=== PATIENT | male | born 1995 | race Caucasian/White ===

== ENCOUNTER 2023-01-09 09:02 | Inpatient (IN) | payer OTHER ==
[2023-01-09 09:24] VITALS: BMI 31.6
[2023-01-09] MEDS ORDERED: guaiFENesin 600 MG TABLET.ER (FP) PO PRN (10:59)
[2023-01-09] MEDS ORDERED: BENZOCAINE/MENTHOL (CHLORASEPTIC ) LOZENGE MM PRN (10:59)
[2023-01-09] MEDS ORDERED: BENZONATATE 200 MG CAPSULE PO PRN (10:59)
[2023-01-09] MEDS ORDERED: MAGNESIUM HYDROX 2400MG/30ML ORAL SUSPENSION 30 ML CUP PO PRN (10:59)
[2023-01-09] MEDS ORDERED: POLYETHYLENE GLYCOL (HEALTHYLAX) 3350 17 GM PACKET PO PRN (10:59)
[2023-01-09] MEDS ORDERED: ONDANSETRON *ODT* 4 MG TABLET SL PRN (10:59)
[2023-01-09] MEDS ORDERED: IBUPROFEN 600 MG TABLET (FP) PO PRN (10:59)
[2023-01-09] MEDS ORDERED: ACETAMINOPHEN 325 MG TABLET (FP) PO PRN (10:59)
[2023-01-09] MEDS ORDERED: chlordiazePOXIDE HCL 25 MG CAPSULE PO PRN (10:59)
[2023-01-09] MEDS ORDERED: MAG HYDROX/AL HYDROX/SIMETH 30 ML UNIT-DOSE CUP PO PRN (10:59)
[2023-01-09] MEDS ORDERED: BISMUTH SUBSALICYLATE 262 MG/15 ML BTL PO PRN (10:59)
[2023-01-09] MEDS ORDERED: NICOTINE 10 MG CARTRIDGE (INHALER) IH PRN (10:59)
[2023-01-09] MEDS ORDERED: NICOTINE 21 MG/24 HOURS TOPICAL PATCH TD PRN (10:59)
[2023-01-09] MEDS ORDERED: LOPERAMIDE HCL 2 MG CAPSULE PO PRN (10:59)
[2023-01-09] MEDS ORDERED: NICOTINE POLACRILEX 4 MG GUM BUC PRN (10:59)
[2023-01-09] MEDS ORDERED: DICYCLOMINE HCL 10 MG CAPSULE PO PRN (10:59)
[2023-01-09] MEDS ORDERED: IBUPROFEN 400 MG TABLET (FP) PO PRN (10:59)
[2023-01-09] MEDS: chlordiazePOXIDE HCL 25 MG CAPSULE PO SCH ×2 (17:17→22:11)
[2023-01-09 17:34] LABS: ALBUMIN 4.3 g/dl (3.4-5.0)
[2023-01-09 17:37] LABS: CREATININE 0.9 mg/dL (0.55-1.3)
[2023-01-09 17:38] LABS: BILIRUBIN,TOTAL 0.7 mg/dL (0.2-1); TOT PROT 7.9 g/dl (6.4-8.2)
[2023-01-09] MEDS: MELATONIN 5 MG TABLETS PO SCH (22:11)
[2023-01-09] MEDS: THIAMINE HCL 100 MG TABLET (FP) PO SCH (22:11)
[2023-01-09] MEDS: levETIRAcetam 500 MG TABLET (FP) PO SCH (22:11)
[2023-01-10] MEDS: chlordiazePOXIDE HCL 25 MG CAPSULE PO SCH ×4 (05:13→22:48)
[2023-01-10] MEDS: levETIRAcetam 500 MG TABLET (FP) PO SCH ×2 (11:25→22:47)
[2023-01-10] MEDS: PRENATAL VITAMINS W/ FOLIC ACID TABLET (FP) PO SCH (11:25)
[2023-01-10] MEDS: MELATONIN 5 MG TABLETS PO SCH (22:47)
[2023-01-10] MEDS: THIAMINE HCL 100 MG TABLET (FP) PO SCH (22:47)
[2023-01-11] MEDS: chlordiazePOXIDE HCL 25 MG CAPSULE PO SCH ×4 (05:59→22:32)
[2023-01-11] MEDS: PRENATAL VITAMINS W/ FOLIC ACID TABLET (FP) PO SCH (10:27)
[2023-01-11] MEDS: levETIRAcetam 500 MG TABLET (FP) PO SCH ×2 (10:28→22:32)
[2023-01-11] MEDS: hydrOXYzine PAMOATE 25 MG CAPSULE (FP) PO PRN (10:28)
[2023-01-11] MEDS: METHOCARBAMOL 500 MG TABLET PO PRN (10:28)
[2023-01-11] MEDS: MELATONIN 5 MG TABLETS PO SCH (22:32)
[2023-01-11] MEDS: THIAMINE HCL 100 MG TABLET (FP) PO SCH (22:32)
[2023-01-12] MEDS ORDERED: chlordiazePOXIDE HCL 10 MG CAPSULE PO PRN
[2023-01-12] MEDS: chlordiazePOXIDE HCL 10 MG CAPSULE PO SCH ×4 (05:03→22:47)
[2023-01-12] MEDS: METHOCARBAMOL 500 MG TABLET PO PRN (10:14)
[2023-01-12] MEDS: levETIRAcetam 500 MG TABLET (FP) PO SCH ×2 (10:14→22:47)
[2023-01-12] MEDS: hydrOXYzine PAMOATE 25 MG CAPSULE (FP) PO PRN (10:14)
[2023-01-12] MEDS: PRENATAL VITAMINS W/ FOLIC ACID TABLET (FP) PO SCH (10:14)
[2023-01-12 12:45] VITALS: RESP 18
[2023-01-12] MEDS: THIAMINE HCL 100 MG TABLET (FP) PO SCH (22:46)
[2023-01-12] MEDS: MELATONIN 5 MG TABLETS PO SCH (22:47)
[2023-01-13] MEDS ORDERED: chlordiazePOXIDE HCL 10 MG CAPSULE PO SCH (05:00)
[2023-01-13 05:53] VITALS: TEMP 97.3
[2023-01-13 09:09] VITALS: BP 143/82; PULSE 69
[2023-01-13] MEDS: levETIRAcetam 500 MG TABLET (FP) PO SCH (09:35)
[2023-01-13] MEDS: PRENATAL VITAMINS W/ FOLIC ACID TABLET (FP) PO SCH (09:35)
[2023-01-14] MEDS ORDERED: chlordiazePOXIDE HCL 10 MG CAPSULE PO ONE (05:00)
== END 2023-01-13 09:37 | disposition home or self-care (01) | DRG 897 ==
LOC: YASAS 09:02 → Y6N 12:01
PROVIDERS: ADMIT Allergy & Immunology; ATTEND Surgery
PROC: HZ2ZZZZ Detoxification Services for Substance Abuse Treatment (ICD-10-PCS; principal; 2023-01-09)
DX: F10.230 Alcohol dependence with withdrawal, uncomplicated (principal); F17.213 Nicotine dependence, cigarettes, with withdrawal
CPT/HCPCS: 36415; 80053; 86780; 87811; 93005; 93010; C9803-CS; U0003; U0005

== ENCOUNTER 2024-03-02 02:38 | Emergency (ER) | payer OTHER ==
[2024-03-02 02:48] VITALS: BP 113/62; PULSE 82; RESP 18; TEMP 98; BMI 26.4
== END 2024-03-02 07:17 | disposition home or self-care (01) ==
LOC: JER 02:38
DX: M79.671 Pain in right foot (principal); M79.672 Pain in left foot; R21 Rash and other nonspecific skin eruption; Z59.00 Homelessness unspecified
CPT/HCPCS: 99283-25